=== PATIENT | female | born 1955 | race Caucasian/White ===

== ENCOUNTER 2022-10-24 12:27 | Emergency (ER) | payer OTHER ==
[~2022-10-24] VITALS: Ht 157.5 cm; Wt 59.0 kg
[2022-10-24] MEDS ORDERED: MONT-35 PO (12:53)
[2022-10-24] MEDS ORDERED: GABA-1181 PO (12:53)
[2022-10-24] MEDS ORDERED: vitamin b1 PO (12:53)
[2022-10-24] MEDS ORDERED: FOLI0.4T6 PO (12:53)
[2022-10-24] MEDS ORDERED: PROP10TA73 PO (12:53)
[2022-10-24] MEDS ORDERED: CHOL25TA4 PO (12:53)
[2022-10-24] MEDS ORDERED: ATOR40TA28 PO (12:53)
[2022-10-24] MEDS ORDERED: FAMO20 PO (12:53)
[2022-10-24] MEDS ORDERED: FURO40 PO (12:53)
[2022-10-24] MEDS ORDERED: ZOLP-280 PO (12:53)
[2022-10-24] MEDS ORDERED: MELO-381 PO (12:53)
[2022-10-24] MEDS ORDERED: ONDANSETRON HCL 4 MG/2 ML VIAL IVP ONE (14:15)
[2022-10-24] MEDS ORDERED: GABA-1201 PO (14:15)
[2022-10-24] MEDS ORDERED: THIA100T80 PO (14:15)
[2022-10-24] MEDS ORDERED: MORPHINE SULFATE 2 MG/ML SYRINGE IVP ONE ×2 (14:15→18:15)
[2022-10-24] MEDS ORDERED: SODIUM CHLORIDE 0.9% 1,000 ML IV ONE (14:15)
[2022-10-24 14:38] LABS: COVID AG,FIA SOURCE NASOPHARYNGEAL
[2022-10-24 14:42] LABS: BASOPHILS % (AUTO) 1.4 % (0.0-2.0); EOSINOPHILS % (AUTO) 0.5 % (1.0-6.0); HEMATOCRIT 46.1 % (36-46); HEMOGLOBIN 15.1 g/dL (12.0-16.0); LYMPHOCYTES # (AUTO) 3.8 K/uL (1.0-4.8); LYMPHOCYTES % (AUTO) 21.2 % (22.0-44.0); MEAN CORPUSCULAR HGB CONC 32.8 G/dL (31.0-37.0); MEAN CORPUSCULAR VOLUME 95 fL (80-100); MONOCYTES # (AUTO) 1.7 K/uL (0.1-1.0); MONOCYTES % (AUTO) 9.6 % (2.0-9.0); NEUTROPHILS % (AUTO) 67.3 % (40.0-70.0); PLATELET COUNT (AUTO) 363 K/uL (150-450); RED BLOOD CELL COUNT(AUTO) 4.88 MIL/uL (4.00-5.20); RED CELL DISTRIBUTION WIDTH 13.8 % (11.5-14.5)
[2022-10-24 14:49] LABS: CALCIUM, TOTAL 10.3 mg/dL (8.8-10.5); CREATININE 1.1 mg/dL (0.60-1.30)
[2022-10-24 14:55] LABS: ALBUMIN 4.6 g/dL (3.4-5.0); BILIRUBIN,TOTAL 0.7 mg/dL (0.1-1.0)
[2022-10-24 15:11] LABS: INFLUENZA TYPE A NEGATIVE FOR TYPE A (NEGATIVE); INFLUENZA TYPE B NEGATIVE FOR TYPE B (NEGATIVE)
[2022-10-24 16:14] LABS: APPEARANCE,URINE HAZY (CLEAR); GLUCOSE, URINE (UA) NEGATIVE (NEGATIVE); KETONES,URINE 40-60 mg/dL (NEGATIVE); LEUKOCYTE ESTERASE ,URINE TRACE (NEGATIVE); NITRATE,URINE NEGATIVE (NEGATIVE); OCCULT BLOOD,URINE NEGATIVE (NEGATIVE); PROTEIN,URINE 300-600,SEE CONFIRM mg/dL (NEGATIVE); SPECIFIC GRAVITIY, URINE 1.027 (1.003-1.030)
[2022-10-24 16:18] LABS: BILIRUBIN,URINE SMALL (NEGATIVE)
[2022-10-24 16:29] LABS: SULFOSALICYLIC ACID,URINE 3+ (Negative)
[2022-10-24 16:31] LABS: SQUAMOUS EPITHELIAL CELL,UR Few /LPF (None Seen)
[2022-10-24 16:32] LABS: BACTERIA,URINE Few /HPF (None Seen); RBC,URINE None Seen /HPF (0-2)
[2022-10-24] MEDS ORDERED: IBUP-1492 PO (19:31)
[2022-10-24] MEDS ORDERED: ONDA-104 PO (19:31)
[2022-10-24 20:34] VITALS: BP 160/87
== END 2022-10-24 22:59 | disposition home or self-care (01) ==
LOC: EMS 13:06
DX: R10.84 Generalized abdominal pain (principal); F11.23 Opioid dependence with withdrawal; D72.828 Other elevated white blood cell count; R19.00 Intra-abdominal and pelvic swelling, mass and lump, unspecified site; I71.40 Abdominal aortic aneurysm, without rupture, unspecified; F41.9 Anxiety disorder, unspecified; J45.909 Unspecified asthma, uncomplicated; J44.9 Chronic obstructive pulmonary disease, unspecified; E78.00 Pure hypercholesterolemia, unspecified; I10 Essential (primary) hypertension; G89.29 Other chronic pain; Z20.822 Contact with and (suspected) exposure to COVID-19
CPT/HCPCS: 99285; 74176; 96374; 76856; 71045; 96361; 96375; 87426; 80053; 81001; 83690; 84484; 85025; 87804; 36415; 93005; 96376; J2270; J2405; J7030; 81002

== ENCOUNTER 2023-02-09 10:30 | Emergency (ER) | payer OTHER ==
[~2023-02-09] VITALS: Ht 154.9 cm; Wt 56.8 kg
[~2023-02-09 10:30] MED LIST: ATOR40TA28 PO; CHOL25TA4 PO; FAMO20 PO; FOLI0.4T6 PO; FURO40 PO; GABA-1201 PO; IBUP-1492 PO; MELO-381 PO; MONT-35 PO; ONDA-104 PO; PROP10TA73 PO; THIA100T80 PO; ZOLP-280 PO
[2023-02-09] MEDS ORDERED: HYDR-4061 PO (11:04)
[2023-02-09] MEDS ORDERED: IBAN150T21 PO (11:11)
[2023-02-09] MEDS ORDERED: LISI5TAB21 PO (11:11)
[2023-02-09] MEDS ORDERED: IPRA3AMP24 NEB (11:11)
[2023-02-09] MEDS ORDERED: CALC-1124 PO (11:11)
[2023-02-09] MEDS ORDERED: BUPR-49 PO (11:11)
[2023-02-09] MEDS ORDERED: FOLI-130 PO (11:11)
[2023-02-09] MEDS ORDERED: OMEP40CA21 PO (11:11)
[2023-02-09] MEDS ORDERED: FLUT110H IH (11:11)
[2023-02-09] MEDS ORDERED: ALBU18HF12 IH (11:11)
[2023-02-09] MEDS ORDERED: OXYB-34 PO (11:11)
[2023-02-09] MEDS ORDERED: AMOX1TAB16 PO (11:11)
[2023-02-09] MEDS ORDERED: ERYTHROMYCIN 0.5% 3.5 GM TUBE OPHTHALMIC OINTMENT OS ONE (12:45)
[2023-02-09 12:50] VITALS: BP 140/80
== END 2023-02-09 13:05 | disposition home or self-care (01) ==
LOC: EMS 10:31
DX: H00.015 Hordeolum externum left lower eyelid (principal); F41.9 Anxiety disorder, unspecified; J45.909 Unspecified asthma, uncomplicated; J44.9 Chronic obstructive pulmonary disease, unspecified; E78.00 Pure hypercholesterolemia, unspecified; I10 Essential (primary) hypertension; G89.29 Other chronic pain
CPT/HCPCS: 99283

== ENCOUNTER 2023-08-10 07:18 | Emergency (ER) | payer OTHER ==
[~2023-08-10] VITALS: Ht 152.4 cm; Wt 60.0 kg
[~2023-08-10 07:18] MED LIST changes: +ALBU18HF12 IH; +AMOX1TAB16 PO; +BUPR-49 PO; +CALC-1124 PO; +FLUT12AE19 IH; +FOLI-130 PO; -FOLI0.4T6 PO; +HYDR-4061 PO; +IBAN150T21 PO; +IPRA3AMP24 NEB; +LISI5TAB21 PO; +OMEP40CA21 PO; +OXYB-34 PO
[2023-08-10 07:55] VITALS: TEMP 98.4
[2023-08-10 08:23] LABS: COVID AG,FIA SOURCE NASAL SWAB
[2023-08-10 08:53] LABS: INFLUENZA TYPE A NEGATIVE FOR TYPE A (NEGATIVE); INFLUENZA TYPE B NEGATIVE FOR TYPE B (NEGATIVE); SARS-COV2 (COVID) ANTIGEN,FIA Negative (Negative)
[2023-08-10 10:18] VITALS: BP 146/88; PULSE 84; RESP 16
== END 2023-08-10 10:59 | disposition home or self-care (01) ==
LOC: EMS 07:19
DX: J06.9 Acute upper respiratory infection, unspecified (principal); F41.9 Anxiety disorder, unspecified; J45.909 Unspecified asthma, uncomplicated; J44.9 Chronic obstructive pulmonary disease, unspecified; E78.00 Pure hypercholesterolemia, unspecified; I10 Essential (primary) hypertension; G89.29 Other chronic pain; Z20.822 Contact with and (suspected) exposure to COVID-19
CPT/HCPCS: 71045; 87804; 99284

== ENCOUNTER 2024-05-03 23:05 | Emergency (ER) | payer OTHER ==
[~2024-05-03] VITALS: Ht 165.1 cm; Wt 70.0 kg
[~2024-05-03 23:05] MED LIST changes: -AMOX1TAB16 PO; -FLUT12AE19 IH; +FLUT1BLS3 IH; +GABA-1181 PO; -GABA-1201 PO; +MELO-107 PO; -MELO-381 PO; +METO50 PO; -PROP10TA73 PO; -THIA100T80 PO; +THIA100T92 PO; +TRAZ-252 PO
[2024-05-03 23:06] VITALS: TEMP 98
[2024-05-04 00:40] LABS: BASOPHILS % (AUTO) 1.2 % (0.0-2.0); EOSINOPHILS % (AUTO) 2.8 % (1.0-6.0); HEMATOCRIT 39.3 % (36-46); HEMOGLOBIN 12.9 g/dL (12.0-16.0); LYMPHOCYTES # (AUTO) 2.9 K/uL (1.0-4.8); LYMPHOCYTES % (AUTO) 41.5 % (22.0-44.0); MEAN CORPUSCULAR HEMOGLOBIN 29.4 pg (26.0-34.0); MEAN CORPUSCULAR HGB CONC 32.8 G/dL (31.0-37.0); MEAN CORPUSCULAR VOLUME 90 fL (80-100); MONOCYTES # (AUTO) 0.4 K/uL (0.1-1.0); MONOCYTES % (AUTO) 6.2 % (2.0-9.0); NEUTROPHILS # (AUTO) 3.4 K/uL (1.8-7.7); NEUTROPHILS % (AUTO) 48.3 % (40.0-70.0); PLATELET COUNT (AUTO) 499 K/uL (150-450); RED BLOOD CELL COUNT(AUTO) 4.38 MIL/uL (4.00-5.20); RED CELL DISTRIBUTION WIDTH 16.3 % (11.5-14.5)
[2024-05-04 00:50] LABS: CALCIUM, TOTAL 8.3 mg/dL (8.8-10.5); CREATININE 0.98 mg/dL (0.60-1.30); POTASSIUM 4.1 mmol/L (3.5-5.1)
[2024-05-04 02:57] VITALS: BP 133/77; PULSE 72; RESP 16
== END 2024-05-04 07:44 | disposition home or self-care (01) ==
LOC: EMS 23:06
DX: F10.229 Alcohol dependence with intoxication, unspecified (principal); F41.9 Anxiety disorder, unspecified; J44.9 Chronic obstructive pulmonary disease, unspecified; E78.00 Pure hypercholesterolemia, unspecified; I10 Essential (primary) hypertension; G89.29 Other chronic pain; F17.210 Nicotine dependence, cigarettes, uncomplicated
CPT/HCPCS: 99283; 80048; 85025; 36415; G0480

== ENCOUNTER 2025-03-31 16:12 | Emergency (ER) | payer OTHER ==
[~2025-03-31] VITALS: Ht 157.5 cm; Wt 115.0 kg
[~2025-03-31 16:12] MED LIST changes: +AMLO-257 PO; +CELE-146 PO; -FURO40 PO; +FURO40TA6 PO; -GABA-1181 PO; +GABA-534 PO; -HYDR-4061 PO; -IBUP-1492 PO; -MELO-107 PO; -OMEP40CA21 PO; -ONDA-104 PO
[2025-03-31 16:24] VITALS: BP 106/66; PULSE 78; RESP 20; TEMP 98.8; O2SAT 94
[2025-03-31 16:50] LABS: COVID AG,FIA SOURCE NASAL SWAB
[2025-03-31 16:55] LABS: PLATELET COUNT (AUTO) 255 K/uL (150-450); RED BLOOD CELL COUNT(AUTO) 4.11 MIL/uL (4.00-5.20); RED CELL DISTRIBUTION WIDTH 16.3 % (11.5-14.5); WHITE BLOOD COUNT (AUTO) 10.9 K/uL (4.5-11.0)
[2025-03-31 17:23] LABS: SARS-COV2 (COVID) ANTIGEN,FIA Negative (Negative)
[2025-03-31 17:24] LABS: INFLUENZA TYPE A NEGATIVE FOR TYPE A (NEGATIVE); INFLUENZA TYPE B NEGATIVE FOR TYPE B (NEGATIVE)
[2025-03-31 17:31] LABS: CALCIUM, TOTAL 8.9 mg/dL (8.8-10.5); CREATININE 1.0 mg/dL (0.60-1.30); GLOMERULAR FILTR. RATE CALC 55.0 mL/min (>60); GLUCOSE,RANDOM 112.0 mg/dL (70-110); SODIUM SERUM 138.0 mmol/L (136-145); UREA NITROGEN, BLOOD 6.0 mg/dL (7-18)
[2025-03-31] MEDS ORDERED: GUAIFDM PO (17:58)
[2025-03-31] MEDS ORDERED: FLUT1BLS19 IH (17:58)
[2025-03-31] MEDS ORDERED: PRED-554 PO (17:58)
[2025-03-31] MEDS ORDERED: AZIT250T9 PO (17:58)
[2025-03-31] MEDS ORDERED: ALBU18HF12 IH (17:58)
[2025-03-31] MEDS: GuaiFENesin/D-METHORPHAN [SUGAR-FREE] 200-20MG/10 ML SYRUP UDCUP PO ONE (18:03)
[2025-03-31] MEDS: DOXYCYCLINE HYCLATE 100 MG TABLET PO ONE (18:03)
[2025-03-31] MEDS: CEPHALEXIN MONOHYDRATE 500 MG CAPSULE PO ONE (18:03)
== END 2025-03-31 18:45 | disposition home or self-care (01) ==
LOC: EMS 16:12
DX: J44.1 Chronic obstructive pulmonary disease with (acute) exacerbation (principal); E78.00 Pure hypercholesterolemia, unspecified; F41.9 Anxiety disorder, unspecified; I10 Essential (primary) hypertension; G89.29 Other chronic pain; F17.210 Nicotine dependence, cigarettes, uncomplicated; Z79.899 Other long term (current) drug therapy; Z20.822 Contact with and (suspected) exposure to COVID-19
CPT/HCPCS: 99285; 96374; 71045; 87426; 80048; 85025; 87804; 36415; 93005; J2919

== ENCOUNTER 2025-07-16 15:15 | Emergency (ER) | payer OTHER ==
[~2025-07-16] VITALS: Ht 152.4 cm; Wt 52.8 kg
[~2025-07-16 15:15] MED LIST changes: +FLUT1BLS19 IH; +GUAIFDM PO; +PRED-554 PO
[2025-07-16 15:30] VITALS: BP 103/80; PULSE 78; RESP 16; TEMP 98.8; O2SAT 98
[2025-07-16 16:30] LABS: APPEARANCE,URINE HAZY (CLEAR); GLUCOSE, URINE (UA) NEGATIVE (NEGATIVE); LEUKOCYTE ESTERASE ,URINE NEGATIVE (NEGATIVE); NITRATE,URINE NEGATIVE (NEGATIVE); OCCULT BLOOD,URINE NEGATIVE (NEGATIVE); SPECIFIC GRAVITIY, URINE 1.025 (1.003-1.030)
== END 2025-07-16 17:58 | disposition home or self-care (01) ==
LOC: EMS 15:15
DX: E86.0 Dehydration (principal); K59.00 Constipation, unspecified; E78.00 Pure hypercholesterolemia, unspecified; F41.9 Anxiety disorder, unspecified; J44.89 Other specified chronic obstructive pulmonary disease; I10 Essential (primary) hypertension; G89.29 Other chronic pain; F17.210 Nicotine dependence, cigarettes, uncomplicated; Z79.51 Long term (current) use of inhaled steroids; Z79.52 Long term (current) use of systemic steroids; Z79.899 Other long term (current) drug therapy
CPT/HCPCS: 81003; 99283